=== PATIENT | female | born 1940 | race Caucasian/White ===

== ENCOUNTER → 2024-08-02 08:53 | Outpatient (REF) | payer MEDICARE, BC, SELFPAY | LOC: RAD 08:53 | PROVIDERS: ATTENDING PHYSICIAN Internal Medicine Interventional Cardiology; FAMILY PHYSICIAN Physician Assistant | DX: I35.0 Nonrheumatic aortic (valve) stenosis (principal) | CPT/HCPCS: 74174; 75572; Q9967 ==

== ENCOUNTER 2024-08-23 08:51 | Day surgery (SDC) | payer MEDICARE, BC, SELFPAY ==
[2024-08-23] VITALS (11 sets, daily range): BP systolic 110–159; BP diastolic 52–83; BMI 17.6
[2024-08-23 09:17] LABS: Hematocrit 39.3 % (37.0-47.0); Hemoglobin 13.2 g/dL (12.0-16.0); Mean Corp Hgb Conc. 33.6 g/dL (33.0-37.0); Mean Corpuscular Hgb 29.4 pg (27.0-31.0); Mean Corpuscular Volume 87.5 fL (81.0-99.0); Mean Platelet Volume 10.1 fL (7.4-10.4); Platelet Count 285 10^3/uL (130-400); Red Blood Cell Count 4.49 10^6/uL (4.20-5.40); Red Cell Dist. Width 15.6 % (11.5-14.5)
[2024-08-23 09:27] LABS: Blood Urea Nitrogen 37 mg/dl (7-17); Carbon Dioxide 27 mmol/L (22-30); Chloride 109 mmol/L (98-107); Estimated Creatinine Clearance 30 ml/min; Glucose 93 mg/dl (70-99); Potassium 4.7 mmol/L (3.5-5.1); Sodium 142 mmol/L (135-145); eGFR 49.24
[2024-08-23] MEDS: LOW STRENGTH ASPIRIN 81 MG PO (09:53)
--- NOTE | 2024-08-23 10:06 | CONSULT.STRU ---
Addendum entered and electronically signed by Rehan Winn MD 08/27/24 09:05:
I saw and examined the patient.
The RING STRIKER's note was reviewed and I agree with the note.
Comment:
I met with Rosa Maria Mathews and her sister in the pathology lab technician. We discussed the potential of a trans catheter valve implantation. In my professional opinion, she is not fit surgical intervention and post a significant risk for complications and
morbidity/mortality. She has severe on her imaging, and has had a significant decline in her health. We will discuss her from an MDT setting re: TAVR and continue the workup. Consent will need to be obtained on day of procedure. Dr. Decker to also
discuss with her primary back pad inspector. Would move forward with TAVR eval.
Thank you for involving me in the care of this patient. Please feel free to contact me with any questions or concerns.
Rehan Winn MD, MS
Cardiothoracic Surgeon
[facility]
This dictation was created using the CR2 dictation system. Please excuse any grammatical, typographical, or 'sound alike' errors.
Addendum entered and electronically signed by MARK Camejo 08/24/24 13:42:
Patient reviewed at the heart team meeting today. Discussion on weather TAVR will improve the patient's quality of life and risk/benefit of proceeding. Dr. Decker to discuss with the patient's primary back pad inspector, Dr. Botello and then follow up with
the her sister Nima as to the discussion. Team feels she would be high risk beyond what STS predicts for TAVR with her other co-morbidities. She is tentatively scheduled for 09/13/2024 if we will proceed. Her pre-admission testing was completed
yesterday.
Original Note:
Consultation
-
Date/Time Consultation Requested: 08/23/2024
Date/Time Consultation Performed: 08/23/2024
Requesting Provider: Dr. Sonia Decker
Performing Provider: Kimberly Pickering
Reason for Consultation: Aortic stenosis/ TAVR evaluation
Patient History
Physicians
Family Physician: Jaci Hurst
Outpatient Conventional Machinist: Moira Grady
Primary Conventional Machinist: Moira Grady
History of Present Illness
Rui perales is a 84-year-old female with past medical history of hypothyroidism, Sjogren's disease, CKD, hypothyroidism, MGUS, prior stroke (05/2024) which has resulted in her being wheelchair-bound, admission for pneumonia in October 2023,
thrombocytopenia, hearing loss, recent hospitalization at [facility] from May 23, 2024 to June 05, 2024 after a fall who is being referred today for evaluation for possible transcatheter aortic valve replacement in the setting of
severe aortic stenosis and undergoing cardiac cath today. She had an echocardiogram completed on May 29, 2024 during her hospitalization, which showed normal LV systolic function with mild LVH, LVEF of 65% by report without obvious wall motion
abnormalities.� Moderate left atrial enlargement.� Severely calcified aortic valve with reduced leaflet excursion.� Peak velocity of 5.2 m/s with elevated peak and mean gradients of 109 and 63 mmHg, respectively with aortic valve area by continuity
equation of 0.68 and DVI of 0.22 consistent with critical aortic stenosis.� Small pericardial effusion.� PA systolic pressure estimated at 32 mmHg.� Compared to prior echocardiogram from October 25, 2023 EF then was 60% with aortic valve velocity on
prior study at 1.9 m/s.� Prior echo from August 2023 had an aortic valve velocity noted of 4.4 m/s with mild aortic regurgitation. She reported new left-sided hemiparesis and left facial droop on May 29, 2024 during hospitalization.� During
hospitalization above she was treated for pneumonia and RSV and the hospital stay was complicated by a UTI and a right pontine stroke which was confirmed on MRI.� She now resides at a [facility] facility.�From a cardiac standpoint she denies
any chest discomfort or shortness of breath, syncope, presyncope, lightheadedness/dizziness, palpitations, orthopnea or PND.� No lower extremity edema. Per her sister she has been extremely fatigued and she gets short of breathe with transfers from
bed to wheelchair. Patient appears extremely frail and has had a 30 pound weight loss since May admission at [place]. Sister relates to difficulty eating because of dentures and her dietary restrictions from her Sjogrens.
Past Medical History
Past Medical History: CVA/TIA (05/29/2024 acute right pontine stroke), HTN, Hypothyroidism, Valvular Disease (severe , Mild AI, mild MR, TR) and Other (anemia, CKD Stage 3, long standing steroid therapy since 2014. sjogren syndrome, osteopenia,
right foot drop, sarcoidosis of the lung, childhood epilepsy (resolved), hypercalcemia (treated with prednisone), h/o abnl LFTs, ambulatory dysfunction)
Past Surgical History
Past Surgical History: Other (subtotal thyroidectomy, kidney biopsy, bone marrow biopsy, bilateral breast papilloma excisions, tubal ligation, hysterectomy, lung biopsy, tonsillectomy, liver biopsy)
Dental History
Upper - Dentures, Lower - 2 implants to secure dentures- per Dr. Winn she does not need Dental Clearance
Family History
Mother: at Age (99yo) and Cause of (cardiomyopathy)
Father: at Age (78yo) and Cause of (black lung, cardiac disease)
Social History
Alcohol: None
Drug: None
Tobacco: Non-Smoker
Personal: Single
Living: [facility]
Employment: Retired (database design analyst)
Allergies
Allergy/AdvReac Type Severity Reaction Status Date / Time
No Known Drug Allergies Allergy Unknown Verified 08/23/24 09:35
Home Medications
�Medication �Instructions �Recorded �Confirmed �Type
acetaminophen 325 mg tablet 650 mg PO Q4H PRN pain 08/23/24 08/23/24 History
(Tylenol)
artificial tears with lanolin eye 1 applic ophthalmic (eye) DAILY 08/23/24 08/23/24 History
ointment PRN dry eyes
aspirin 81 mg chewable tablet 81 mg PO DAILY 08/23/24 08/23/24 History
cholecalciferol (vitamin D3) 25 25 mcg PO DAILY 08/23/24 08/23/24 History
mcg (1,000 unit) tablet
cyclosporine 0.05 % eye drops in a 1 drp ophthalmic (eye) Q12H 08/23/24 08/23/24 History
dropperette (Restasis)
diphenhydramine-zinc acetate 2 1 applic topical TID PRN for rash 08/23/24 08/23/24 History
%-0.1 % topical solution
erythromycin 5 mg/gram (0.5 %) eye 1 applic ophthalmic (eye) DAILY 08/23/24 08/23/24 History
ointment
ezetimibe 10 mg tablet 10 mg PO DAILY 08/23/24 08/23/24 History
levothyroxine 75 mcg tablet 75 mcg PO DAILY 08/23/24 08/23/24 History
magnesium hydroxide 400 mg/5 mL 30 ml PO DAILY PRN if no BM in 72 08/23/24 08/23/24 History
oral suspension (Milk of Magnesia) hours
pantoprazole 40 mg tablet,delayed 40 mg PO DAILY 08/23/24 08/23/24 History
release
prednisone 20 mg tablet 40 mg PO DAILY 08/23/24 08/23/24 History
STS%
STS %: 3.86%
Review of Systems
-
History Source: Patient and Family
General: Reports Weight Loss (30 pounds since 05/2024) and Fatigue
HEENT: Reports No Symptoms
Respiratory: Reports BLUE; Denies PND
Cardiac: Reports No Symptoms; Denies Chest Pain, Palpitations or Edema
Abdomen/GI: Reports Other (decreased appetite and 30lb weight loss since May 2024); Denies Abdominal Pain, Reflux, Nausea, Vomiting or Diarrhea
: Reports Frequency
Musculoskeletal: Reports No Symptoms
Skin: Reports Other (small sacral decubitus)
Neurological: Reports CVA (05/2024) and Weakness (residual left leg and arm weakness)
Vascular: Reports No Symptoms
Physical Exam
Vital Signs
Temp 97.6 F 08/23/24 09:24
Temp route: Oral 08/23/24 09:15
Pulse 65 08/23/24 09:24
Resp Rate 16 08/23/24 09:15
Blood pressure 129/73 08/23/24 09:24
Blood pressure extremity used: Right upper arm 08/23/24 09:15
Position: Lying 08/23/24 09:15
MAP (cuff-Michael Monitor) 92 08/23/24 09:24
SaO2 96 08/23/24 09:24
Oxygen Mode of Delivery Room air 08/23/24 09:15
Can the patient verbally communicate their pain? Yes 08/23/24 09:15
Actual Weight 50.802 kg 08/23/24 09:24
Body Mass Index (BMI) 17.6 08/23/24 09:24
Labs
08/23/24 09:03
08/23/24 09:03
Diagnostic Studies
05/09/2024 Echocardiogram ([facility]):
EF: 65-70%
Aortic Valve: PG/M/63, HELEN 0.68cm2, DVI 0.22, mild AI
Mitral Valve: Mild MAC, mild MR
Tricuspid Valve: mild TR, no pulmonary HTN, estimated PAP: 32mmHg
Pulmonic Valve: Mild VT
Small pericardial effusion
08/23/2024 Cardiac Catheterization:
HEMODYNAMICS : (mmHg)
AO (s/d) : 115/6
CORONARY FINDINGS: Moderate to severely tortuous coronary arteries.
DOMINANCE: Right
LEFT MAIN: Left main artery is a large-caliber vessel which gives rise to the left anterior descending artery, ramus intermedius branch and the left circumflex artery. Normal vessel.
LEFT ANTERIOR DESCENDING: The left anterior descending artery is a medium to large caliber vessel which gives rise to 1 major diagonal branch as it courses to the anterior interventricular groove and wraps around the apex. Mid LAD has smooth 20 to
30% stenosis.
RAMUS INTERMEDIUS: The ramus intermedius branch is a medium caliber vessel with mild atherosclerotic plaque in the proximal portion.
CIRCUMFLEX: The left circumflex artery is a medium caliber vessel with gives rise to 1 small to medium caliber. There is minimal luminal irregularities.
RIGHT CORONARY ARTERY: The right coronary artery is a large-caliber, dominant vessel which gives rise to the right posterior descending artery and a small right posterolateral system. There is minimal luminal irregularities.
SEDATION: 32 minutes of procedural sedation was utilized. An independent director medical economics was present to assist with and help manage the patient's level of consciousness and physiologic status.
RADIATION SUMMARY: Fluoro Time (min): 2.6, Dose (mGy): 151, DAP (Gy.cm2) : 8.15
Closure Device: Vascular band over right radial artery, 10 cc of air.
CONCLUSIONS
1. Moderate to severely tortuous coronary arteries.
2. No obstructive coronary artery disease.
3. Known severe symptomatic aortic stenosis with Peak gradient 84mmHg/Mean gradient 47mmHg and the estimated aortic valve area is 0.4-0.5cm2. Mild aortic regurgitation.
RECOMMENDATIONS
1. Discussed her case in detail at the next structural heart meeting for consideration for transcatheter aortic valve replacement.
2. Aggressive management of cardiovascular risk factors.
3. Wean immediately per protocol.
Exam
General: Poor Appetite and Other (Cachetic, frail)
HEENT: Normocephalic
Neck: Trachea Midline
Respiratory: Clear
Cardiac: S1/S2, Regular Rhythm and Murmur (Grade III/ SAVAGE)
GI: Soft, Non Tender, Non Distended and Normal Bowel Sounds
Rectal: Deferred by Provider
Skin: Warm, Dry and Other (sacral dressing in place)
Neuro: Awake, Alert and Nonfocal/Grossly Intact
Extremities: Pulses (palpable pedal pulses); Negative Lower Level Edema
Psych: Calm
Assessment / Plan
-
Procedure Type:�Isolated AVR
Perioperative Outcome Estimate %
Operative Mortality 3.86%
Morbidity & Mortality 7.83%
Stroke 2.69%
Renal Failure 1.37%
Reoperation 3.16%
Prolonged Ventilation 4.21%
Deep Sternal Wound Infection 0.017%
Long Hospital Stay (>14 days) 4.24%
Short Hospital Stay (<6 days)* 33.6%
Severe Aortic Stenosis:
Continue to evaluate for TAVR
Continue ASA daily
Patient seen by Dr. Winn in cardiac pathology lab technician today- consult completed
Dental clearance waived by Dr. Winn- patient has upper dentures and two implant on lower to hold dentures in place
Heart Team discussion on 08/24
Cachexia
Discussed increased supplements such as boost/ensure with the patient and her sister.
Weekly weights
Data Reviewed
-
EKG: Report Reviewed by me
Main Entree Cook And Cashier: Report Reviewed by me and Discussed with Physician
Echo: Report Reviewed by me, Discussed with Physician, Discussed with Patient and Discussed with Family
CT Scan: Report Reviewed by me, Discussed with Physician, Discussed with Patient and Discussed with Family
Labs: Labs Reviewed by me, Discussed with Patient and Discussed with Family
Old Records: Reviewed (Cardiology office notes, previous [facility] admission progress notes)
Total Time Spent with Patient (in minutes): 45
--- NOTE | 2024-08-23 15:04 | ITS.CL.CATH ---
Physician In Private Practice - Catheterization
Cardiac Catheterization
Procedure Report:
LEFT HEART CATHETERIZATION
Date of Procedure: August 23, 2024
Referring: Moira Botello MD
PROCEDURES:
1. Coronary angiogram
2. Moderate sedation
INDICATION: Severe aortic stenosis, pre-TAVR workup
ACCESS: Right radial artery, 6 Turkmen sheath, under ultrasound-guided
Ultrasound was utilized for vascular access. The radial artery was visualized under ultrasound, and the vessel was patent and pulsatile. An image was stored permanently in the patient's medical record. Under direct ultrasound guidance, a 6 Turkmen
sheath was inserted into the artery using a micropuncture kit through a modified Seldinger technique.
HEMODYNAMICS : (mmHg)
AO (s/d) : 115/6
CORONARY FINDINGS: Moderate to severely tortuous coronary arteries.
DOMINANCE: Right
LEFT MAIN: Left main artery is a large-caliber vessel which gives rise to the left anterior descending artery, ramus intermedius branch and the left circumflex artery. Normal vessel.
LEFT ANTERIOR DESCENDING: The left anterior descending artery is a medium to large caliber vessel which gives rise to 1 major diagonal branch as it courses to the anterior interventricular groove and wraps around the apex. Mid LAD has smooth 20 to
30% stenosis.
RAMUS INTERMEDIUS: The ramus intermedius branch is a medium caliber vessel with mild atherosclerotic plaque in the proximal portion.
CIRCUMFLEX: The left circumflex artery is a medium caliber vessel with gives rise to 1 small to medium caliber. There is minimal luminal irregularities.
RIGHT CORONARY ARTERY: The right coronary artery is a large-caliber, dominant vessel which gives rise to the right posterior descending artery and a small right posterolateral system. There is minimal luminal irregularities.
SEDATION: 32 minutes of procedural sedation was utilized. An independent medical transcription radiology was present to assist with and help manage the patient's level of consciousness and physiologic status.
RADIATION SUMMARY: Fluoro Time (min): 2.6, Dose (mGy): 151, DAP (Gy.cm2) : 8.15
Closure Device: Vascular band over right radial artery, 10 cc of air.
CONCLUSIONS
1. Moderate to severely tortuous coronary arteries.
2. No obstructive coronary artery disease.
3. Known severe symptomatic aortic stenosis with Peak gradient 84mmHg/Mean gradient 47mmHg and the estimated aortic valve area is 0.4-0.5cm2. Mild aortic regurgitation.
RECOMMENDATIONS
1. Discussed her case in detail at the next structural heart meeting for consideration for transcatheter aortic valve replacement.
2. Aggressive management of cardiovascular risk factors.
3. Wean immediately per protocol.
Copy to: Moira Botello MD
Sonia Decker MD, [facility], [facility]
[2024-08-23 17:00] LABS: INR 0.94; PT 13.1 Sec (11.4-14.6)
--- NOTE | 2024-08-23 17:06 | CM ---
spoke to pt and sister in cathlab. pt is being pre-oped for TAVR 09/13 today. anaesthesia has seen pt today. pts sister is Isela DOVE- [phone]. pt has hx of CVA 05/26 and in primarily in a WC. her memory is not good from the stroke,
her sister is taking notes. she lives at [facility], at present she is recieving skilled care and is moving to personal care next wk. sister tells me that the pt can walk with a walker about 100 ft. they have the soap, tavr booklet and
instructions. two copies were provided- one for the sister and one for nurse at [facility]. plan is for return to [facility] personal care after dc. cm role explained and all questions answered.
[2024-08-23 17:08] LABS: APTT 46.3 Sec (23.4-35.0)
[2024-08-23 17:14] LABS: NT-proBNP 1430 pg/ml
[2024-08-23 17:54] LABS: Urine Albumin 2+ (Neg - Trace); Urine Bilirubin Negative (Negative); Urine Character Slightly Cloudy (Clear); Urine Color Yellow; Urine Glucose Negative (Negative); Urine Ketone Negative (Negative); Urine Leukocyte 3+ (Negative); Urine Nitrite Negative (Negative); Urine Occult Blood 2+ (Negative); Urine Urobilinogen Negative (Neg - 1+)
[2024-08-23 19:19] LABS: Urine Amorphous Seen; Urine Squamous Cell 0-2 /LPF (Few); Urine Triple Phosphate Crystal Present
[2024-08-23 19:20] LABS: Urine Bacteria Few (Negative); Urine Red Blood Cell 0-2 /HPF (0-2); Urine White Cell 0-2 /HPF (0-5)
[2024-08-24 09:48] LABS: Glycohemoglobin (HgbA1c) 5.1 % (4.0-5.6)
[2024-08-27 07:01] LABS: ALT (SGPT) 22 U/L (0-35); AST (SGOT) 18 U/L (14-36); Albumin 3.1 g/dl (3.5-5.0); Alkaline Phosphatase 43 U/L (38-126); Direct Bilirubin 0.2 mg/dl (0.0-0.4); Total Bilirubin 0.5 mg/dl (0.2-1.3); Total Protein 5.3 g/dl (6.3-8.2)
== END 2024-08-23 18:09 | disposition home or self-care (01) ==
LOC: CATH 08:51
PROVIDERS: Nurse Practitioner Adult Health; ATTENDING PHYSICIAN Internal Medicine Interventional Cardiology; FAMILY PHYSICIAN Internal Medicine; OTHER PHYSICIAN Internal Medicine Cardiovascular Disease
DX: I25.10 Atherosclerotic heart disease of native coronary artery without angina pectoris (principal); Z99.3 Dependence on wheelchair; Z86.73 Personal history of transient ischemic attack (TIA), and cerebral infarction without residual deficits; I12.9 Hypertensive chronic kidney disease with stage 1 through stage 4 chronic kidney disease, or unspecified chronic kidney disease; E03.9 Hypothyroidism, unspecified; M35.00 Sjogren syndrome, unspecified; I08.3 Combined rheumatic disorders of mitral, aortic and tricuspid valves; I31.39 Other pericardial effusion (noninflammatory); M85.80 Other specified disorders of bone density and structure, unspecified site; N18.30 Chronic kidney disease, stage 3 unspecified; R54 Age-related physical debility; I35.2 Nonrheumatic aortic (valve) stenosis with insufficiency; Z79.82 Long term (current) use of aspirin; Z79.52 Long term (current) use of systemic steroids; Z79.890 Hormone replacement therapy; Z79.899 Other long term (current) drug therapy; Z68.1 Body mass index [BMI] 19.9 or less, adult; Z86.018 Personal history of other benign neoplasm; Z87.440 Personal history of urinary (tract) infections; Z82.49 Family history of ischemic heart disease and other diseases of the circulatory system; D86.0 Sarcoidosis of lung; E83.52 Hypercalcemia
CPT/HCPCS: 71045; 80048; 80076; 81003; 81015; 83036; 83880; 85027; 85610; 85730; 86850; 86900; 86901; 87086; 93005; 93306; 93454; 99152; 99153; C1894; Q9967

== ENCOUNTER 2024-09-18 05:38 | Inpatient (IN) | payer MEDICARE, BC, SELFPAY ==
--- NOTE | 2024-09-05 16:12 | CM ---
Spoke to pt and sister in cathlab on 08/23. pt is being pre-oped for TAVR 09/13 today. anaesthesia has seen pt today. pts sister is Isela DOVE- [phone]. pt has hx of CVA 05/26 and in primarily in a WC. her memory is not good from the
stroke, her sister is taking notes. she lives at [facility], at present she is recieving skilled care and is moving to personal care next wk. sister tells me that the pt can walk with a walker about 100 ft. they have the soap, tavr booklet and
instructions. two copies were provided- one for the sister and one for nurse at [facility]. plan is for return to [facility] personal care after dc. cm role explained and all questions answered.
--- NOTE | 2024-09-13 10:40 | PTCARENOTE ---
Pt arrived at 0940 for planned TAVR, pt wheelchair bound, able to stand and pivot to get un bed with assist of 2, in interviewing pt it was discovered that the pt had a small amount of oatmeal today at 0830 at the long-term, Dr Wade informed-
he communicated with Dr Decker and it was determined that the procedure would be canceled for today. Dr Decker came and spoke to the pt and her sister at the bedside at 1015. The pt was redressed and placed back in the wheelchair. The sister left with
the pt at 1040.
[2024-09-18] VITALS (18 sets, daily range): BP systolic 84–129; BP diastolic 40–64; BMI 17.0
--- NOTE | 2024-09-18 06:18 | PTCARENOTE ---
Received patient the morning of the scheduled TAVR. Patient alert and oriented to self. Disoriented to time and place. SR on the monitor, HR in the 70s. VSS on room air. IV started. Patient clipped and CHG wiped. Patient reports L arm and leg
weakness from prior stroke. Doppler pulses. Ambulatory with a 2 person assist and rolling walker. Patient reports being NPO since midnight besides medications.
--- NOTE | 2024-09-18 06:31 | W.CVOR.SURPR ---
CVOR Surgeon Immed Pre Op
-
CARDIAC SURGERY ATTENDING:
I met with Mrs. Rosa Maria Mathews and her sister this morning. The main conversation was with her sister as Mrs. Mathews is quite lethargic and resting in bed. Her most recent echocardiogram from 08/23/2024 demonstrated a heavily calcified trileaflet
aortic valve with severe aortic stenosis with peak/mean gradients of 80/47 mmHg respectively with a calculated HELEN of 0.4-0.5. There was mild associated aortic regurgitation. Her left ventricular function is relatively preserved with an LVEF of 55
to 60%. She has mild mitral regurgitation and mild tricuspid regurgitation. Subsequent cardiac catheterization demonstrated no significant obstructive CAD with moderate to severely tortuous coronaries. Her TAVR CT has been completed with an
aortic annular measurement of 400, LVOT measurement of 407, appropriate sinuses, and appropriate coronary heights. Bilateral iliofemoral systems appear adequate.
During my conversations with Mrs. Mathews's sister, she relates that the patient is profoundly lethargic and has been so for the past 3 to 5 years. She relates that she rarely gets out of bed and has lost weight recently due to decreased p.o.
intake. She does not relate that the patient complains of any BLUE/SOB or chest pains/palpitations. When I inquired about her typical daily activities, she states that she awakes, has breakfast, watches TV, and goes back to bed occasionally awaking
again for lunch and repeating. I was very clear that TAVR is very possibly document impact on her overall energy levels or functional status in any meaningful way. However, given the severe stenosis there is a small chance of some functional
improvement post this procedure in terms of the patient's energy levels. I would not offer surgical rescue to this patient given her comorbidities, advanced age, and current functional status. I reviewed with Mrs. Mathews's sister the TAVR
procedure itself, the procedural risks (including, but not limited to, , stroke, DC, arrhythmia, PPM requirement, PNA, TAMANNA/F, bleeding/vascular injury, and infection), we discussed the expected in-hospital postprocedural course, and reviewed
the expected outpatient recovery. All questions were answered to the best of my abilities. Informed consent was obtained.
Of note, Mrs. Mathews experienced a fall approximately 1 week ago she was evaluated at an outside hospital and workup at that time was reportedly negative she had imaging of her head and spine per the sister's report. Since that time, the patient
has been reporting left leg pain when standing. She says she has obtained an x-ray image of her hip that was unremarkable, but requested further evaluation of the patient's left lower extremity while she is an inpatient following her TAVR
procedure. I will attempt to facilitate.
Thank you.
Elmer Zhang MD
[phone]
--- NOTE | 2024-09-18 07:16 | ITS.CL.TAVR ---
Senior Linux Engineer - TAVR Report
TAVR PRocedure
Procedure Report:
TRANSCATHETER AORTIC VALVE REPLACEMENT
Date of Procedure: September 18, 2024
Referring: Moira Botello MD
Operators: Drs. Sonia Decker and Elmer Zhang
PROCEDURE PERFORMED:
1. Successful placement of 23 mm Marrufo Aayush S3 aortic valve via right common femoral approach.
ACCESS:
1. Right common femoral artery, 8 Gambian sheath, under ultrasound guidance using a micropuncture kit.
2. Left common femoral vein, 6 Gambian sheath, under ultrasound guidance using a micropuncture kit.
3. Left common femoral artery, 6 Gambian sheath, under ultrasound guidance using a micropuncture kit.
Ultrasound was utilized for vascular access. The right and left femoral artery and vein were visualized under ultrasound, and the vessels was patent and arteries were pulsatile. An image was stored permanently in the patient's medical record.
Under direct ultrasound guidance, a 6 Gambian sheaths was inserted into the left common femoral artery and vein, and an 8 Gambian sheath in the right common femoral artery, respectively, using a micropuncture kit through a modified Seldinger technique.
PREPROCEDURE NYHA CLASS: II
DESCRIPTION OF PROCEDURE: The patient was referred for assessment of severe symptomatic aortic stenosis and following a comprehensive evaluation it was felt that transcatheter aortic valve replacement (TAVR) would be the most appropriate treatment.
Informed consent was obtained prior to the procedure. A 'time-out' was called and the procedural plan was verbally confirmed by anesthesia, surgery, perfusion, and laborer syrup machine staff.
Arterial and venous access site were obtained in the right common femoral artery and vein using ultrasound guidance and micropuncture technique. 6 Fr. sheaths were inserted.
A 5 Fr. transvenous pacing wire was advanced to the right ventricle where excellent pacing thresholds were obtained.
A 5 Fr. pigtail catheter was then advanced to the proximal ascending aorta / right aortic cusp where angiography was performed in multiple angles to define the co-planar angle that was most appropriate valve deployment (ISHA 2/ CAU 16).
Ultrasound guidance was then used to obtain arterial access in the right common femoral artery and a 4 Fr. micropuncture sheath was inserted. Angiography was performed and the arteriotomy site appeared appropriate for preclosure with two Perclose
devices. An 8 Fr sheath was then inserted back into the common femoral artery over a J-tipped guidewire. An AL1 catheter was positioned in the proximal descending aorta. An Extra Stiff 0.035' J-tip wire was inserted to provide extra-support to
facilitate the Marrufo eSheath delivery. The 16 Fr. Marrufo eSheath was successfully advanced in the descending thoracic aorta.
An AL1 catheter was advanced through the Marrufo eSheath over a 0.035' J-tip guide wire. The AL1 catheter was positioned just above the aortic valve. A 0.035' Straight tip wire probed the aortic valve and crossed the stenotic leaflets. The AL1
was then advanced to the mid left ventricle. Estimated LV end-diastolic pressure invasively was 14mmHG. An Amplatz Extra-stiff wire with a generous curved tip was then positioned in the left ventricular apex. A 23 mm Marrufo Aayush S3 valve was
brought to the table and the orientation of the valve on the balloon delivery system was confirmed by all operators. The Aayush S3 valve was advanced through the eSheath and into the proximal descending thoracic aorta. The Aayush S3 valve was
centered on the delivery balloon and the entire system was retroflexed as it crossed the aortic arch. The Aayush S3 delivery system was then advanced across the stenotic valve and the 23 mm Aayush S3 valve was deployed during rapid pacing. The
valve deployment was uneventful. Transthoracic echocardiographic images post valve deployment revealed minimal aortic insufficiency with excellent position of the aortic prosthesis.
The Marrufo balloon and delivery system were then removed. The Marrufo sheath was removed and the Perclose knots were advanced to the arteriotomy site resulting in excellent hemostasis.
Fluoro Time: 11.1 min, Dose: 128 mGy, DAP : 16.7 Gy.cm2
CONCLUSIONS:
1. Severe symptomatic aortic stenosis. Successful deployment of a 23 mm Aayush S3 valve with minimal aortic insufficiency post procedure
2. Successful arteriotomy closure with 2 Perclose devices.
3. High normal LVEDP of 14mmHG
Sonia Decker MD, FAC, [facility]
Copy to: Moira Botello MD (Supervisor Slitting And Shipping) and MARK Estrada ([facility])
[2024-09-18] MEDS: ANCEF 10 IV (07:34)
--- NOTE | 2024-09-18 09:03 | W.IMMPOSTOP ---
Surgical Immed Post Op Note
-
[id number]
STRUCTURAL HEART PROCEDURE NOTE: TAVR
Preoperative Dx:
Severe aortic stenosis
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
HTN
Hypothyroidism
CKD III
Sjogren's sydrome
Osteopenia
Sarcoidosis of the lung
Long standing steroid therapy
Ambulatory dysfunction
R foot drop
Recent fall w/ LLE pain w/ weight bearing
Postoperative Dx:
Same
LVEDP not significantly elevated: 14
Procedures:
1) L CFV access w/ U/S and fluoroscopic guidance, micropuncture technique, long 6Fr sheath placement
2) L HOT STRIP MILL INSPECTOR access w/ tactile, U/S, and fluoroscopic guidance, micropuncture technique, long 6Fr sheath placement
3) R HOT STRIP MILL INSPECTOR access w/ tactile, U/S, and fluoroscopic guidance, micropuncture technique, limited angiography, 8Fr dilator placement
4) Perclose placement x 2 into R HOT STRIP MILL INSPECTOR, 8Fr sheath placement
5) Placement of temporary RV pacing wire w/ threshold testing
6) Placement of pigtail catheter in RCC w/ limited aortography & confirmation of co-planar valve deployment angles
7) Placement of Marrufo E-sheath via R HOT STRIP MILL INSPECTOR (systemic heparinization)
8) Wire purchase across stenotic AV (AL-1, soft-tip straight, LVEDP assessment, extra-stiff)
9) Visual inspection of TAVR valve
10) R TF TAVR w/ placement of 23mm DANIELLE 3 valve
11) Completion aortography
12) Completion TTE (trace PVL, mean gradient 4mmHg)
13) Removal of [id number], Edward E-sheath w/ R HOT STRIP MILL INSPECTOR mgmt w/ perclose sutures x 2; manual pressure
14) Completion R ileofemoral angiography - minor extravasation - protamine administered, additional manual pressure held
15) Repeat completion R ileofemoral angiography w/ resolution of minor extravasation
16) Removal of temporary pacing wire
17) Limited angiography of L HOT STRIP MILL INSPECTOR
18) Removal of L HOT STRIP MILL INSPECTOR 6Fr sheath w/ mgmt w/ 6Fr angioseal; manual pressure
19) Removal of L CFV 6Fr sheath; manual pressure
Photographer:
Dr. Sonia Decker
Cardiac Surgeon:
Dr. Elmer Zhang
Anesthesia:
MAC w/ local to B/L groins
Complications:
None
Implants:
Marrufo DANIELLE 3 23mm; SN [id number]
Perclose x 2 to R HOT STRIP MILL INSPECTOR
6Fr angioseal x 1 to L HOT STRIP MILL INSPECTOR
Cath Data:
Start: 0737hrs, Deploy: 0819hrs, End: 0854hrs
FT: 11.1min, mGy: 128, DAP: 16.7, Contrast: 100mL
Post-TTE: mean gradient 4mmHg, trace PVL
Condition:
Stable/guarded to recovery
[2024-09-18 09:45] LABS: ACT-LR - POC 289 Seconds (116-155)
[2024-09-18 09:45] LABS: ACT-LR - POC 290 Seconds (116-155)
--- NOTE | 2024-09-18 11:12 | CM ---
Chart reviewed. Patient currently lives Personal Care at [facility], wheelchair dependent. Plan is for the patient to return to Personal Care at [facility]. Report will need to be called to Saundra, Clinical Director, 4th Floor PC Unit,
[phone] and ask for [address] [place] [address] Personal Care Unit. Plan is for the patient to return to [facility] Personal Care. CM to follow
[2024-09-18] MEDS: ANCEF IV (11:23)
[2024-09-18] MEDS: THERAGRAN 1 TABLET PO (11:28)
--- NOTE | 2024-09-18 14:52 | PTCARENOTE ---
Pt received post TAVR at 1030. Pt awake and alert but disoriented to place. Denies any pain or discomfort. Purewic in place and draining clear yellow urine. Bilateral groin site dressings dry and intact with no bleeding or hematoma. Levo
discontinued at 1045, bp 103/47.
[2024-09-18] MEDS: ANCEF 5 IV (16:26)
--- NOTE | 2024-09-18 23:10 | PTCARENOTE ---
Received patient at change of shift. SR on the monitor, HR in the 80s. VSS on room air. Disoriented to time and place at baseline. Bilateral groin dressings CDI, soft. No complaints from pt at this time, call angelo within reach.
[2024-09-19 03:50] VITALS: BP 118/54
[2024-09-19 04:32] VITALS: BMI 17.1
[2024-09-19 04:33] LABS: Hematocrit 31.6 % (37.0-47.0); Hemoglobin 10.7 g/dL (12.0-16.0); Mean Corp Hgb Conc. 33.9 g/dL (33.0-37.0); Mean Corpuscular Hgb 28.7 pg (27.0-31.0); Mean Corpuscular Volume 84.7 fL (81.0-99.0); Mean Platelet Volume 10.9 fL (7.4-10.4); Platelet Count 132 10^3/uL (130-400); Red Blood Cell Count 3.73 10^6/uL (4.20-5.40); Red Cell Dist. Width 16.6 % (11.5-14.5); White Blood Cell Count 4.6 10^3/uL (4.8-10.8)
[2024-09-19 05:04] LABS: Blood Urea Nitrogen 18 mg/dl (7-17); Calcium 7.5 mg/dl (8.4-10.2); Carbon Dioxide 21 mmol/L (22-30); Chloride 117 mmol/L (98-107); Estimated Creatinine Clearance 36 ml/min; Glucose 88 mg/dl (70-99); Sodium 141 mmol/L (135-145); eGFR > 60.00
--- NOTE | 2024-09-19 05:38 | W.PN.CT ---
Today's Communication / Plan
-
-pod #1
-no issues overnight
-nsr 80s overnight, had 3 brief episodes of SVT since admission. No steve or pauses
-Echo today
-current meds (ASA, Zetia, Protonix, Prednisone 40 qd)
-encourage IS, OOB
-possible d/c
Assessment / Plan
-
- Severe symptomatic - s/p R TF TAVR w/ placement of 23mm DANIELLE 3 valve on 09/18/24, pod #1
- Postop TTE: mean gradient 4mmHg, trace PVL
- LVEDP not significantly elevated: 14
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
- HTN
- Hypothyroidism
- BMI 17
- CKD IIIa (Cr 1.1 preop)
- Sjogren's sydrome
- Osteopenia
- Sarcoidosis of the lung
- Long standing steroid therapy
- Ambulatory dysfunction
- R foot drop
- Recent fall w/ LLE pain w/ weight bearing- L femur XRY 09/18/24 without acute abnormalities
Discussed patient care with: Nursing and Care Team
Subjective
-
Date of Service: September 19, 2024
Objective Data
Vital Signs
Vital Signs
Temp Pulse Resp BP Pulse Ox
98.7 F 72 18 120/59 97
09/18/24 22:41 09/18/24 19:17 09/18/24 22:41 09/18/24 19:17 09/18/24 22:41
CT Intake/Output/Weight
09/18/24 09/18/24 09/19/24
06:59 18:59 06:59
Intake Total 800 / 800
Output Total 550 / 550
Balance 250 / 250
SaO2: 97
Physical Exam
-
General: Awake and Oriented (to self and place only (has some confusion at baseline as well))
Cardiovascular: Regular rate & rhythm, No Murmurs and No Rub
Respiratory: Clear
Incision: Other (groins are cdi, soft, no hematoma b/l)
Extremities: No Edema (DPs are by Doppler b/l)
Abdomen: soft, nontender, nondistended, + bowel sounds
Data Reviewed
-
Lab Results: Results Reviewed
Medications: Active Meds Reviewed
Chest X-Ray: Report Reviewed and Image Reviewed
ECG: Report Reviewed and Image Reviewed
[2024-09-19] MEDS: SYNTHROID 75 MCG PO (06:07)
[2024-09-19] MEDS: ERYTHROMYCIN 0.5% OPHTHALMIC OINTMENT 1 APPLIC OPHTH (07:58)
[2024-09-19] MEDS: PROTONIX 40 MG PO (07:58)
[2024-09-19] MEDS: LOW STRENGTH ASPIRIN 81 MG PO (07:58)
[2024-09-19] MEDS: VITAMIN D3 (cholecalciferol) 25 MCG PO (07:58)
[2024-09-19] MEDS: THERAGRAN 1 TABLET PO (07:58)
[2024-09-19] MEDS: DELTASONE 40 MG PO (07:58)
[2024-09-19] MEDS: ZETIA 10 MG PO (08:14)
[2024-09-19] MEDS: RESTASIS 0.05% OPHTHALMIC EMULSION 1 DROPS OPHTH (08:14)
[2024-09-19 08:19] VITALS: BP 133/70
--- NOTE | 2024-09-19 10:11 | W.PN.ANS.POP ---
Anesthesia Post Operative
- Anesthesia Post Op Note
Vital Signs Stable-See Nursing Note: Yes
Airway Patent: Yes
Adequate Pain Control: Yes
Change in Mental Status: No
Current Postoperative Nausea & Vomiting: No
Anesthesia Complications: No
General Anesthetic Recall: No
Unplanned Admission: No
Post Op Hydration Adequate: Yes
--- NOTE | 2024-09-19 10:52 | W.PN.CARDCBS ---
Addendum entered and electronically signed by Sonia Decker MD 09/19/24 19:12:
I saw and examined the patient.
The Key Carrier's note was reviewed and I agree with the note.
Comment: Patient did well overnight and does not offer any significant complaints this morning. She is doing well post TAVR. Telemetry with short runs of SVT, overall asymptomatic
Vital signs and lab work reviewed, patient is out of bed in a chair, ANO x 2, lungs are clear to auscultation bilaterally, regular rate, normal S1 and S2, 2 out of 6 systolic ejection murmur at the right upper sternal border, no rubs or gallops,
abdomen is soft, nontender, nondistended with active bowel sounds, bilateral groin sites with dressing in place which is clean, dry and intact without evidence of hematoma or bruit, warm extremities without significant edema
Recommendations:
1. Patient is doing well post her 23 mm Marrufo DANIELLE TAVR yesterday.
2. Post TAVR echocardiogram reviewed this morning showing preserved LV systolic function with mean transaortic gradient of 15 mmHg, no PVL.
3. Continue daily baby aspirin and will initiate low-dose Toprol-XL at 12.5 mg daily.
4. Out of bed into a chair, PT OT.
Overall if no issues from a PT/OT standpoint stable for discharge. She will follow-up with her outpatient commercial production editor, Dr. Botello.
Sonia Decker MD, [facility], [facility]
Original Note:
Today's Communication / Plan
-
Doing well status post TAVR
Add Toprol 12.5 mg daily due to brief runs of SVT noted on telemetry overnight
Continue aspirin
Ambulate
Outpatient cardiac follow-up arranged
Impression / Plan
-
Primary Human Resources Temp: Dr. Decker
Assessment:
Severe symptomatic s/p R TF TAVR w/ placement of 23mm DANIELLE 3 valve 09/18/24
Brief SVT
History of R pontine CVA 05/29/2024
HTN
Hypothyroidism
CKD IIIa
Sjogren's sydrome
Osteopenia
Sarcoidosis of the lung
Long standing steroid therapy
Ambulatory dysfunction
R foot drop
ECHO 08/23/24: EF 55 to 60%, moderate concentric LVH, MAC, mild MR, severe with peak/mean gradients 84/47 mmHg, HELEN 0.4 0.5 cm., Mild AR, mild TR
Echo 09/18/2024: Limited IntraOp TTE during TAVR, EF 60 to 65%, number 23 mm transcatheter aortic valve replacement with peak/mean gradients 11/5 mmHg, trace AR, no pericardial effusion
Echo 09/19/2024: EF 65 to 70%, status post Marrufo DANIELLE #23 TAVR with peak/mean gradients 33/15 mmHg, no AR, mild to moderate TR, normal pericardium
Plan:
- Status post right transfemoral TAVR 09/18/2024
- Patient doing well overnight without complaints
- Bilateral groin sites soft, clean dry and intact
- Echocardiogram this morning with slightly higher gradients, however overall felt to be stable
- Noted to have several brief runs of SVT on review of telemetry overnight. Patient asymptomatic. Will add Toprol 12.5 mg daily
- check TSH
- Continue aspirin. Hemoglobin 10.7
- Out of bed/ambulate
- Likely okay for discharge today
- Outpatient cardiac follow-up arranged
- Discussed with nursing. Discussed with patient and family at bedside. Discussed with CT surgery
Progress Note - Human Resources Temp
Subjective
Date of Service: September 19, 2024
No complaints
Objective
Labs:
09/19/24 04:02
Labs
Hgb 10.7 g/dL (12.0-16.0) L 09/19/24 04:02
Hct 31.6 % (37.0-47.0) L 09/19/24 04:02
Plt Count 132 10^3/uL (130-400) 09/19/24 04:02
Sodium 141 mmol/L (135-145) 09/19/24 04:02
Potassium 4.0 mmol/L (3.5-5.1) 09/19/24 04:02
BUN 18 mg/dl (7-17) H 09/19/24 04:02
Creatinine 0.9 mg/dL (0.6-1.0) 09/19/24 04:02
Glucose 88 mg/dl (70-99) 09/19/24 04:02
Vital Signs and I&O:
Vital Signs
Temp Pulse Resp BP Pulse Ox
98.6 F 88 16 133/70 99
09/19/24 08:21 09/19/24 08:45 09/19/24 08:21 09/19/24 08:19 09/19/24 08:21
Vital Signs
Temp Pulse Resp BP Pulse Ox
98.6 F 88 16 133/70 99
09/19/24 08:21 09/19/24 08:45 09/19/24 08:21 09/19/24 08:19 09/19/24 08:21
Intake & Output
09/17/24 09/18/24 09/19/24 09/20/24
07:59 07:59 07:59 07:59
Intake Total 800 / 800
Output Total 650 / 650
Balance 150 / 150
Physical Exam
Physical Exam
GEN: No distress, awake, alert, oriented x3. Sitting in chair. Wearing sunglasses
HEENT: supple, mmm
LUNGS: CTA bilaterally, no wheezes/rales
CV: Reg, S1/S2, 1/6 syst LSB
ABD: soft, BS+, NT/ND
EXT: No cyanosis, clubbing, edema
NEURO: Gross non-focal
SKIN: Warm, pink, dry. No rash. Bilateral groin sites soft, clean dry and intact, nontender to palpation
[2024-09-19 11:44] LABS: Hematocrit 34.6 % (37.0-47.0); Hemoglobin 11.9 g/dL (12.0-16.0)
[2024-09-19] MEDS: TOPROL XL 12.5 MG PO (12:02)
--- NOTE | 2024-09-19 12:48 | PN.CDI ---
CDI
- -
CDI:
Physician Documentation Request
Admit Date: 09/18/24 05:38
Dear Doctor/ CVPA,
Please review the following and provide your response in the progress notes.
Clinical Indicators:
Height: 5 ft 7 in
Weight:108 lb
BMI: 17.0
Other Clinical Notes: Nutrition consult 09/18,' Current BW: (09/18) 108 lbs 7.479 oz BMI: 17.0 (underweight)...'
If possible, please provide an associated diagnosis related to the abnormal BMI, such as:
BMI < or = to 19
Underweight
Cachectic
- Other
Use of terms such as suspected, likely, concern for, or probable (associated with a specific diagnosis that is being evaluated, monitored, or treated as if it exists) are acceptable and can be coded in the inpatient setting, when documented at the
time of discharge.
Thank you,
Gaby Ayala RN
CDI Specialist
[place] [facility]
Please use your independent medical judgment in providing your response.
--- NOTE | 2024-09-19 13:23 | W.DCSUMMARY ---
Discharge Summary
Discharge Data
Date of Admission: 09/18/24
Date of Discharge: 09/19/24
-
Pending Results: No
Hospital Course
Primary care physician: Dr. Jaci Pinto
Outpatient horse rider: Dr. Botello
Inpatient consultants: [facility] Cardiology
Procedures:
1. Right Transfemoral TAVR with Marrufo Aayush 3
Primary Diagnosis:
1. Severe Aortic Stenosis
Secondary Diagnoses:
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
- HTN
- Hypothyroidism
- BMI 17
- CKD IIIa (Cr 1.1 preop)
- Sjogren's sydrome
- Osteopenia
- Sarcoidosis of the lung
- Long standing steroid therapy
- Ambulatory dysfunction
- R foot drop
- Recent fall w/ LLE pain w/ weight bearing- L femur XRY 09/18/24 without acute abnormalities
HPI: 84 [id number] who underwent extensive outpatient consultation for her severe/critical aortic stenosis in which she was recommended for TAVR
Hospital course:
Patient was electively admitted on 09/18/24 for a transcatheter aortic valve replacement with Dr. Sonia Decker and Dr. Elmer Zhang. There were no intra-op events and patient went to laboratory analyst recovery. B/l groins remained stable. She was sent to
[facility] for the remainder of their recovery. On 09/19/24, POD #1, B/L groins remained stable. Repeat TTE showed EF 65-70% and bioprosthetic AV with a peak/mean gradient of 33/15 and no AI. Cardiology was consulted routinely for inpatient management.
She had brief episodes of SVT during her recovery, in which she was started on Toprol XL 12.5 mg daily, TSH was normal. She was deemed stable for discharge to her previous living facility with plan to follow-up with Cardiology as outpatient.
Home medication changes:
- Addition of Metoprolol Succinate (Toprol XL) 12.5 mg daily
Discharge Plan
-
Patient Disposition: Assisted Living
Discharge Diagnosis/Procedures: TAVR
Condition: Good
Diet: Low Cholesterol and 2 Gram Sodium
Activity: No restrictions
Additional Activity: able to perform physical activity as tolerated prior to procedure.
Driving Restrictions: No driving
Bathing Restrictions: OK to Shower
Others Tests: Please call Dr. Botello's office (primary horse rider) to schedule an echocardiogram 30-days after your TAVR procedure.
Other Services: Cardiac Rehab
Wound Care: No lotions, creams, or powders to procedure sites. Keep wound sites open to air.
Shower daily. Do not soak in a tub, hot tub, pool, ect. for 1-2 weeks until groin sites have healed.
Specialty Instructions: Weigh Daily- Call MD for wt gain/loss 3 lbs overnight/5 lbs in 1 week
Stand Alone Forms: DC Instructions- Cath/EP Lab
Referrals:
Ying Flores LANDSCAPE MANAGER [Other] - 10/19/24 11:30 am
[facility] [Outside]
([phone] 4th Floor Personal Care
)
Jaci Hurst CRNP [Family Provider] -
Prescriptions:
New
metoprolol succinate 25 mg Tablet Extended Release 24 Hr
12.5 mg PO DAILY 30 Days Qty: 15 1RF
Continued
acetaminophen [Tylenol] 325 mg Tablet
650 mg PO Q4H PRN (Reason: pain)
Patient Comments:
PRN med not given per paperwork
prednisone 20 mg Tablet
40 mg PO DAILY
levothyroxine 75 mcg Tablet
75 mcg PO DAILY
magnesium hydroxide [Milk of Magnesia] 400 mg/5 mL Suspension
30 ml PO DAILY PRN (Reason: if no BM in 72 hours)
Patient Comments:
PRN med not given as per paperwork
pantoprazole 40 mg Tablet,Delayed Release (Dr/Ec)
40 mg PO DAILY
erythromycin 5 mg/gram (0.5 %) Ointment
1 applic OPHTHALMIC (EYE) DAILY
aspirin 81 mg Tablet,Chewable
81 mg PO DAILY
ezetimibe 10 mg Tablet
10 mg PO DAILY
cyclosporine [Restasis] 0.05 % Dropperette
1 drp OPHTHALMIC (EYE) Q12H
diphenhydramine-zinc acetate 2-0.1 % Solution
1 applic TOPICAL TID PRN (Reason: for rash)
Patient Comments:
PRN med not administered as per paperwork
artificial tears with lanolin Ointment
1 applic OPHTHALMIC (EYE) DAILY PRN (Reason: dry eyes)
Patient Comments:
QID as per pt, not on paperwork
cholecalciferol (vitamin D3) 25 mcg (1,000 unit) Tablet
25 mcg PO DAILY
Discharge Orders:
Discharge Patient (As Directed); Ordered 09/19/24
Ordered By: Maggi Beckett
Care Plan Goals
Care Plan Goals:
Problem: Readiness for enhanced knowledge related to diagnosis and treatment plan
Goal: Understand your diagnosis and treatment plan needs, including medications if applicable.
Instructions: Know your diagnosis, underlying causes and treatment plan options, including medications if applicable. Consult with your health care team to learn about your diagnosis and treatment plan, including medications if applicable.
Discharge Date and Time
Print Language: GERMAN
--- NOTE | 2024-09-19 14:15 | PTCARENOTE ---
Pt received this am with no c/o of any pain or sob. Assisted oob with 1 assist and the walker to the bathroom and out to the chair for breakfast. Bilateral groin site dressings dry and intact, site soft and non pm head cook. Pt discharged back to [facility] via their transportation. Report called to nurse receiving pt. Discharge instructions given and reviewed with pt's sister and all questions answered.
--- NOTE | 2024-09-19 16:12 | CM ---
pt codyfered back to her PC at [facility]. they came back with their van to pick her up.
--- NOTE | 2024-09-19 16:43 | W.PN.UPDATE ---
Update Note
Progress Note Update
CDI Inquiry: patient is cachectic.
== END 2024-09-19 15:44 | disposition home or self-care (01) | DRG 267 ==
LOC: IVU 05:38
PROVIDERS: Clinical Nurse Specialist Acute Care; Physician Assistant Medical; ADMITTING PHYSICIAN Thoracic Surgery (Cardiothoracic Vascular Surgery); CONSULT PHYSICIAN Internal Medicine Interventional Cardiology; FAMILY PHYSICIAN Nurse Practitioner Adult Health
PROC: 02RF38Z Replacement of Aortic Valve with Zooplastic Tissue, Percutaneous Approach (ICD-10-PCS; 2024-09-18)
DX: I08.3 Combined rheumatic disorders of mitral, aortic and tricuspid valves (principal); Z00.6 Encounter for examination for normal comparison and control in clinical research program; I47.10 Supraventricular tachycardia, unspecified; R64 Cachexia; Z68.1 Body mass index [BMI] 19.9 or less, adult; N18.31 Chronic kidney disease, stage 3a; I12.9 Hypertensive chronic kidney disease with stage 1 through stage 4 chronic kidney disease, or unspecified chronic kidney disease; E03.9 Hypothyroidism, unspecified; M35.00 Sjogren syndrome, unspecified; M85.80 Other specified disorders of bone density and structure, unspecified site; D86.9 Sarcoidosis, unspecified; M21.371 Foot drop, right foot; M79.605 Pain in left leg; Z86.73 Personal history of transient ischemic attack (TIA), and cerebral infarction without residual deficits
CPT/HCPCS: 93308; 33361; 71045; 73552; 80048; 84443; 85014; 85018; 85027; 85347; 93005; 93321; 93325; C1760; C1769; C1894; Q9967